=== PATIENT | male | born 1985 ===

== ENCOUNTER 2024-11-14 16:08 | Outpatient (AMB) | payer BC, SELFPAY ==
--- NOTE | 2024-11-14 16:09 | A.OFFPC_ITS ---
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 Required: No Accompanied by: Self / Same As Patient Allergies No Known Allergies Allergy (Verified 11/14/24 16:09) Medication List - Last Reconciled 11/14/24 by Andre Shelby MD blood pressure monitor As directed Tobacco use date assessed: 11/14/24 Dental Screening Dental Screen Date: 11/14/24 Did you have a dental visit in the last 12 months?: No Did you have a dental problem in the last 6 months where you did not have access to dental care?: No Was dental information given to patient?: No HPI HPI Comments History of Present Illness Details History of Present Illness The patient is a 39-year-old male presenting with musculoskeletal leg pain, right-sided, with possible nerve involvement. Sciatica: - Sharp, paralyzing pain in the right le g occurring during driving or prolonged walking, exacerbated by heavy lifting, with progressive worsening and radiation to the back. Essential Hypertension: - Elevated blood pressure recorded three months ago at urgent care without prior diagnosis or formal treatment. Dry skin (possible Eczema): - Excessively dry, flaky skin in the ear s and capps area, resistant to various topical treatments, with past history of chronic, severe ear infections treated with antibiotics. Health Maintenance - Recommended lifestyle modifications in cluding weight management and dietary counseling. - Initiated screening labs including com plete blood count, lipid panel, hemoglobin A1c, complete metabolic panel, thyroid function tests, and screening for vitamin D levels, and infectious diseases. - Discussed the benefits of cardiovascul ar risk reduction through weight management and dietary changes, and planned referrals to spray gun sizer. - Initiated a sleep study for assessment of possible sleep apnea due to snoring symptoms with potential implications for weight management. Review of Systems - Musculoskeletal: Reports nerve-like pa in in the right leg. - Cardiovascular: Reports of previously recorded elevated blood pressure. - Integumentary: Reports excessive dry s kin and flaking in the ears and capps area. - Respiratory: Denies respiratory distre ss. - Neurological: Denies seizure activity or loss of consciousness. - ENT: Denies sore throat or visual mariscal ges; reports history of chronic ear infections. 10-point ROS reviewed and negative excep t as noted in HPI Current Substance Use - Reports occasional marijuana use appro ximately twice a month. Substance Use History - Previous occasional smoking, not curre ntly smoking cigarettes. Past Medical History - Renal stones in [address] can. - Asthma in childhood with reduced sympt oms in adulthood. - History of chronic ear infections with treatment-resistant episodes requiring culture-based antibiotics. Family History - Heart disease: Sister from heart disease at age 13. Social History - with five daughters. 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 - Reports weight at 290 lbs, recognizing the need for weight loss with a previous baseline around 250-240 lbs. - Engages in limited physical activity d ue to time constraints but acknowledges the need for improvement. - Has not had a primary care provider fo r several years, with sporadic healthcare visits to urgent care facilities. Physical Exam General: No apparent distress. Alert and oriented x 3. Head:Normocephalic, atraumatic Eyes: Pupils equal, round, and reactive to light.Extraocular movements intact Throat: Oropharynx clear. Mucus membranes moist Neck: Supple. No left anterior descending artery distention. No jugular vein distention. No bruit. Cardiovascular: Regular rate and rhythm. Normal S1 and S2. Nomurmurs, rubs, or gallops Lungs: Clear to auscultation bilaterally. Breath sounds equal bilaterally. No rales, ronchi, or wheezes. Abdomen: Non-tender. Non-distended. Bowel sounds auscultated. Nochepatosplenomegaly. No mass/rebound/guarding Extremities: Pain on external and internal rotation of the right hip. Left hip normal on extension, flexion, and internal rotation. External rotation is normal, no pain. clubbing, cyanosis, and edema. 2+ pulses Neuro: Central nerves II-XII grossly intact. Motor/sensory intact. Reflexes 2. Gait normal Skin: Warm, dry, and intact. No rash. Dry, flaky skin noted inside ears and on b eard area. Discussion Notes I discussed with the patient that he might be experiencing a condition called sciatica, which can be managed with targeted exercises and lifestyle changes. We discussed weight loss as a significant factor in reducing symptoms, and I recommended consulting with a spray gun sizer for dietary guidance. For the elevated blood pressure, I advised keeping a blood pressure log and sending the patient an at-home blood pressure kit to better assess the condition. We are conducting a comprehensive panel of screening labs to evaluate various health parameters, and I have recommended an at-home sleep study to assess possible sleep apnea which could affect weight loss efforts. I also educated the patient about the potential impact of obesity and family history of heart disease on his health. An anticipatory plan was developed for addressing the dry skin condition, including the use of mineral oil for moisture. Future follow-up will be determined based on lab results and response to initial interventions. Plan 1. Sciatica, unspecified side M54. 30 - Recommended targeted exercises and dot ght management for relief. 2. Essential Hypertension - Monitor blood pressure with home readi ngs to guide further management. 3. Dry Skin Possible Eczema - Suggest use of mineral oil for symptom atic relief. Anticapatory Guidance - Instructions for blood pressure monito ring and lifestyle adjustments. - Strategies for weight loss and dietary changes. - Education about potential implications of snoring and weight on overall health. Patient Instructions - Please monitor your blood pressure at home as instructed. - Start doing specific exercises to help with your leg pain. - Try using a little mineral oil on your ears and capps area to help with the dry skin. - Follow the recommended diet and exerci se plan to help with weight loss. - Look out for the sleep study at home t o check if there are issues like sleep apnea. - Schedule a follow-up appointment to re view your blood pressure and any lab results. [facility] Medical History (Updated 11/13/24 @ 21:43 by NUNU Nava) No family history of bleeding disorder Asthma Surgical History (Updated 11/13/24 @ 21:45 by NUNU Naav) No pertinent past surgical history Family History (Updated 11/14/24 @ 16:19 by Aime Farias MA) Father No problems noted. Mother Asthma Social History Housing: House Alcohol intake: current Alcohol intake frequency: holidays/special occasions only Patient Tobacco Use Status: Never used Tobacco service: No Current occupational status: employed Cognitive needs: No Hearing needs: No Vision needs: Yes (contacts) Questionnaire PHQ-9 Over the last 2 weeks, how often have you been bothered by any of the following problems? 1. Little interest or pleasure in doing things: not at all 2. Feeling down, depressed, or hopeless: several days 3. Trouble falling or staying asleep, or sleeping too much: several days 4. Feeling tired or having little energy: several days 5. Poor appetite or overeating: several days 6. Feeling bad about yourself - or that you are a failure or have let yourself or your family down: several days 7. Trouble concentrating on things, such as reading the newspaper or watching television: several days 8. Moving or speaking so slowly that other people could have noticed. Or the opposite - being so fidgety or restless that you have been moving around a lot more than usual: not at all 9. Thoughts that you would be better off or of hurting yourself in some way: not at all Total score: 6 Depression Screening Interpretation: Positive Depression Screening Done: Yes 57599 - PHQ-9 Billing: Yes Source: Developed by Drs. Jorge Galindo, Maria Alejandra Reddy, Waldo Britt and colleagues, with an educational agatha from [employer]. Thrive Questionnaire Date Thrive assessed: 11/14/24 I am a: Patient What is your living situation today?: I have a steady place to live Within the past 12 months, did the food you bought not last and you didn't have the money to get more?: Often true Within the past 12 months, did you worry whether your food would run out before you got money to buy more?: Never true Do you have trouble paying for medicines?: I choose not to answer this question Do you have trouble getting transportation to medical appointments?: No Do you have trouble paying your heating and electricity bill?: No Do you have trouble taking care of your child, family member or friend?: No Do you have trouble with day-to-day activities such as bathing, preparing meals, shopping, managing finances, etc.?: No Are you currently unemployed and looking for a job?: No Are you interested in more education?: No Please select the resources that you would like help with: None Currently or been in a relationship where the following occur: No concerns reported THRIVE Score: 1 AUDIT C Alcohol Use Questionnaire (AUDIT-C) 1. How often do you have a drink containing alcohol?: Monthly or less 2. How many drinks containing alcohol do you have on a typical day when you are drinking?: 3 or 4 3. How often do you have six or more drinks on one occasion?: Less than monthly Total Score: 3 ANIA-7 AMB Questionnaire ANIA-7 Date ANIA - 7 assessed: 11/14/24 Feeling nervous, anxious, or on edge: 1 = Several days Not being able to stop or control worryin = Several days Worrying too much about different things: 1 = Several days Trouble relaxin = Several days Being so restless that it is hard to sit still: 0 = Not at all Becoming easily annoyed or irritable: 1 = Several days Feeling afraid as if something awful might happen: 0 = Not at all Total ANIA-7 score (0-4 normal; 5-9 mild; 10-14 moderate; 15-21 severe): 5 Source: Developed by Drs. Jorge Galindo, Maria Alejandra Reddy, Waldo Britt and colleagues, with an educational agatha from [employer]. ANIA-7 Assessment Billing ANIA-7 Assessment Tool: ANIA-7 Assessment 76288 Physical exam (Primary Care) PHQ-9: PHQ-9 Score PHQ-9: Total score 6 11/14/24 16:11 Depression Screening Interpretation: Positive Thrive Assessment: Date of Thrive Assessment Date Thrive assessed 11/14/24 11/14/24 16:11 Currently or been in a relationship where the following occur: No concerns reported Coding Level of Care Code New Pt Level 3 (36697) Diagnoses Encounter to establish care with new provider Z76.89 Routine lab draw Z01.89 Encounter for screening, unspecified Z13.9 Hypertension screen Z13.6 Screening for depression Z13.31 Screening for diabetes mellitus Z13.1 Screening for lipoid disorders Z13.220 Routine screening for STI (sexually transmitted infection) Z11.3 Asthma J45.909 Adjustment disorder F43.20 Morbidly obese E66.01 Elevated blood pressure reading R03.0 Additional Codes PHQ-9 - 79271 - PHQ-9 Billing: Yes ([id number]) ANIA-7 Assessment Billing - ANIA-7 Assessment Tool: ANIA-7 Assessment 30754 ([id number]) Assessment & Plan Assessment & Plan (1) Encounter to establish care with new provider: Code(s): Z76.89 - Persons encountering health services in other specified circumstances (2) Routine lab draw: Code(s): Z01.89 - Encounter for other specified special examinations (3) Encounter for screening, unspecified: Code(s): Z13.9 - Encounter for screening, unspecified (4) Hypertension screen: Code(s): Z13.6 - Encounter for screening for cardiovascular disorders (5) Screening for depression: Code(s): Z13.31 - Encounter for screening for depression (6) Screening for diabetes mellitus: Code(s): Z13.1 - Encounter for screening for diabetes mellitus (7) Screening for lipoid disorders: Code(s): Z13.220 - Encounter for screening for lipoid disorders (8) Routine screening for STI (sexually transmitted infection): Code(s): Z11.3 - Encounter for screening for infections with a predominantly sexual mode of transmission (9) Asthma: Code(s): J45.909 - Unspecified asthma, uncomplicated (10) Adjustment disorder: Code(s): F43.20 - Adjustment disorder, unspecified (11) Morbidly obese: Code(s): E66.01 - Morbid (severe) obesity due to excess calories (12) Elevated blood pressure reading: Code(s): R03.0 - Elevated blood-pressure reading, without diagnosis of hypertension Plan Orders: Orders CT NG by PCR Urine Today Z13.9 - Encounter for screening, unspecified, Z76.89 - Persons encountering health services in other specified circumstances Hepatitis B Surface Antibody Today Z13.9 - Encounter for screening, unspecified, Z76.89 - Persons encountering health services in other specified circumstances Hepatitis B Surface Antigen Today Z13.9 - Encounter for screening, unspecified, Z76.89 - Persons encountering health services in other specified circumstances Hepatitis C Antibody Today Z13.9 - Encounter for screening, unspecified, Z76.89 - Persons encountering health services in other specified circumstances Lipid Panel Today Z13.9 - Encounter for screening, unspecified, Z76.89 - Persons encountering health services in other specified circumstances TSH reflex Free T4 Today Z13.9 - Encounter for screening, unspecified, Z76.89 - Persons encountering health services in other specified circumstances Syphilis Screen Today Z13.9 - Encounter for screening, unspecified, Z76.89 - Persons encountering health services in other specified circumstances RT home sleep study Today E66.01 - Morbid (severe) obesity due to excess calories, R03.0 - Elevated blood-pressure reading, without diagnosis of hypertension Complete Blood Count Auto Diff Today Z13.9 - Encounter for screening, unspecified, Z76.89 - Persons encountering health services in other specified circumstances Comprehensive Met. Panel Today Z13.9 - Encounter for screening, unspecified, Z76.89 - Persons encountering health services in other specified circumstances Chlamydia Species Ab Panel Today Z13.9 - Encounter for screening, unspecified, Z76.89 - Persons encountering health services in other specified circumstances Hemoglobin A1c Today Z13.9 - Encounter for screening, unspecified, Z76.89 - Persons encountering health services in other specified circumstances HIV Ab/Ag Today Z13.9 - Encounter for screening, unspecified, Z76.89 - Persons encountering health services in other specified circumstances Microalbumin, Random (w Creat) Today Z13.9 - Encounter for screening, unspecified, Z76.89 - Persons encountering health services in other specified circumstances UA CC w/rflx Micro + Cult Today Z13.9 - Encounter for screening, unspecified, Z76.89 - Persons encountering health services in other specified circumstances Vitamin D 1,25 dihydroxy Today Z13.9 - Encounter for screening, unspecified, Z76.89 - Persons encountering health services in other specified circumstances Referrals Nutrition/Dietitian Referral E66.01 - Morbid (severe) obesity due to excess calories Medications: New blood pressure monitor As directed 1 ea 0RF blood pressure monitoring
[2024-11-14 16:19] VITALS: BP 140/94; PULSE 87; RESP 16; TEMP 36.7; O2SAT 96; BMI 44.6
== END 2024-11-14 16:51 | disposition home or self-care (01) ==
LOC: HO.HMCFMS 16:08
PROVIDERS: PCP Student in an Organized Health Care Education/Training Program; Visit Provider Student in an Organized Health Care Education/Training Program
DX: J45.909 Unspecified asthma, uncomplicated (principal); E66.01 Morbid (severe) obesity due to excess calories; R03.0 Elevated blood-pressure reading, without diagnosis of hypertension; Z68.41 Body mass index [BMI] 40.0-44.9, adult; F43.20 Adjustment disorder, unspecified

== ENCOUNTER → 2024-11-14 16:08 | Outpatient (BNVA) | payer BC, SELFPAY | PROVIDERS: PCP Student in an Organized Health Care Education/Training Program; Visit Provider Student in an Organized Health Care Education/Training Program | DX: Z76.89 Persons encountering health services in other specified circumstances (principal); M79.604 Pain in right leg; L85.3 Xerosis cutis; E66.01 Morbid (severe) obesity due to excess calories; Z68.41 Body mass index [BMI] 40.0-44.9, adult; R03.0 Elevated blood-pressure reading, without diagnosis of hypertension; J45.909 Unspecified asthma, uncomplicated; F43.20 Adjustment disorder, unspecified; Z13.31 Encounter for screening for depression; Z13.39 Encounter for screening examination for other mental health and behavioral disorders | CPT/HCPCS: 96127 ==

== ENCOUNTER 2024-11-18 14:48 | Outpatient (REF) | payer BC, SELFPAY ==
[2024-11-18 17:36] LABS: Appearance Urine Turbid; Glucose Urine UA Negative (Negative); PH 5.5 (5.0-9.0); Specific Gravity - Urine 1.025 (1.005-1.025)
[2024-11-18 17:39] LABS: MANUAL DIFF FLAG NO
[2024-11-18 17:45] LABS: Hematocrit 40.9 % (42.0-52.0); Hemoglobin 13.9 g/dl (14.0-18.0); Imm Gran Abs Auto 0.05 X10*3/uL (0.00-0.03); Imm Gran Pct Auto 0.7 % (0.0-0.4); Lymphocytes Absolute Auto 1.7 X10*3/uL (1.2-4.9); Mean Corpuscular HGB Conc 34.0 g/dl (31.0-36.0); Mean Corpuscular Hemoglobin 29.3 pg (27.0-33.0); Mean Corpuscular Volume 86.3 fL (80.0-98.0); NRBC Abs Auto 0.000 X10*3/uL (0.0-0.012); NRBC Pct Auto 0.0 /100WBC (0.0-0.2); Platelet Count 244 X10*3/uL (160-400); Red Blood Count 4.74 X10*6/uL (4.60-5.80); White Blood Count 7.3 X10*3/uL (4.8-10.8)
[2024-11-18 17:54] LABS: Microalbum/Creatinine Ratio Ur 5.8 ug/mg cr (<30)
[2024-11-18 17:56] LABS: Hemoglobin A1C 136.8413 umol/L; Total Hemoglobin (HGBA1C) 3575.5906 umol/L
[2024-11-18 18:11] LABS: Alanine Aminotransferase 62 U/L (0-40); Albumin Level 4.8 g/dL (3.5-5.0); Alkaline Phosphatase 61 U/L (39-117); Anion Gap 12 (12-20); Aspartate Amino Transferase 42 U/L (5-37); Blood Urea Nitrogen 15 mg/dL (9-16); Calcium 9.3 mg/dL (8.4-10.2); Carbon Dioxide 28 mmol/L (22-29); Chloride 106 mmol/L (96-108); Cholesterol 188 mg/dL (<200); Estimated Glomerular Filt Rate > 60; HDL Cholesterol 28 mg/dL (>40); Potassium 4.0 mmol/L (3.3-5.1); Sodium 142 mmol/L (135-145); Total Protein 7.5 g/dL (6.5-8.0); Triglycerides 345 mg/dL (<150)
[2024-11-20 04:53] LABS: Syphilis Screen Nonreactive (Nonreactive)
[2024-11-20 05:26] LABS: HBS Num1 192.03 mIU/mL (0-7.99); HBsAGNum1 0.43 S/CO (0.00-0.99); HIV Num 1 0.05 S/CO (0.00-0.99); Hepatitis B Surface Antigen Negative (Negative); ~HepC Num1 0.11 S/CO (0.00-0.79); ~Hepatitis B Surface Antibody REACTIVE (Nonreactive); ~Hepatitis C Antibody Nonreactive (Nonreactive)
[2024-11-24 20:18] LABS: Chlamydia Trachomatis IgA <1:16 titer (<1:16)
[2024-11-24 20:39] LABS: VITAMIN D (1,25 OH) D3 68 pg/mL; Vit D (1,25-Dihydroxy) Total 68 pg/mL (18-72); Vitamin D (1,25 OH) D2 <8 pg/mL
== END 2024-11-18 14:49 | disposition home or self-care (01) ==
LOC: HO.HKASLDS 14:48
PROVIDERS: Visit Provider Student in an Organized Health Care Education/Training Program
DX: Z13.1 Encounter for screening for diabetes mellitus (principal); Z13.21 Encounter for screening for nutritional disorder; Z13.6 Encounter for screening for cardiovascular disorders; Z76.89 Persons encountering health services in other specified circumstances; Z13.29 Encounter for screening for other suspected endocrine disorder
CPT/HCPCS: 36415; 80053; 80061; 81003; 82043; 82570; 82652; 83036; 84443; 85025; 86631; 86632; 86706; 86780; 86803; 87340; 87389

== ENCOUNTER 2025-01-15 13:37 | Outpatient (AMB) | payer BC, SELFPAY ==
--- NOTE | 2025-01-15 14:05 | A.OFFVIS_ITS ---
VS Expanded 01/15/25 14:06 Height 5 ft 6.75 in Weight 268 lb BMI 42.3 Intake Visit Reasons: Morbid (severe) obesity due to excess calories Allergies No Known Allergies Allergy (Verified 11/14/24 16:09) Nutrition Presentation Details: Pt presents for MNT for obesity Pt reports increasing water intake and reducing sugars Food frequency Fruits 0-1 a day Vegetables 4 times a week Dairy 4 times or more per day Fish 0-2 month Beverages, water, low sugar beverages and working on reducing on sodas Physical activity daily life activities BS Monitoring Most Recent Diabetes Results: Microalb/Creat Ratio, (<30) 5.8 ug/mg cr 11/18/24 Cholesterol, (<200) 188 mg/dL 11/18/24 HDL Cholesterol, (>40) 28 mg/dL L 11/18/24 Triglycerides, (<150) 345 mg/dL H 11/18/24 Creatinine, (0.5-1.4) 0.97 mg/dL 11/18/24 BUN, (9-16) 15 mg/dL 11/18/24 Sodium, (135-145) 142 mmol/L 11/18/24 Potassium, (3.3-5.1) 4.0 mmol/L 11/18/24 Chloride, (96-108) 106 mmol/L 11/18/24 Carbon Dioxide, (22-29) 28 mmol/L 11/18/24 Calcium, (8.4-10.2) 9.3 mg/dL 11/18/24 AST, (5-37) 42 U/L H 11/18/24 ALT, (0-40) 62 U/L H 11/18/24 Total Protein, (6.5-8.0) 7.5 g/dL 11/18/24 Albumin, (3.5-5.0) 4.8 g/dL 11/18/24 FIP-Uhjlbgo-Kt.Jeor Equation Height: 5 ft 6.75 in Weight: 268 lb Resting Metabolic Rate: 2092.14 Calculated Activity Level: Sedentary Calories Needed to Maintain Weight: 2510.57 Diagnosis Nutrition problem #1: excessive energy intake As related to (etiology) #1: lack of nutrit education As evidenced by (sign/symptom) #1: high BMI [facility] Medical History (Updated 01/26/25 @ 09:[address], LDN) No family history of bleeding disorder Asthma Surgical History (Updated 11/13/24 @ 21:45 by NUNU Nava) No pertinent past surgical history Family History (Updated 11/14/24 @ 16:19 by Aime Farias MA) Father No problems noted. Mother Asthma Social History (Updated 11/14/24 @ 16:19 by Aime Farias MA) Housing: House Alcohol intake: current Alcohol intake frequency: holidays/special occasions only Patient Tobacco Use Status: Never used Tobacco service: No Current occupational status: employed Cognitive needs: No Hearing needs: No Vision needs: Yes (contacts) Assessment & Plan Assessment & Plan (1) Morbid obesity with BMI of 40.0-44.9, adult: Code(s): E66.01 - Morbid (severe) obesity due to excess calories; Z68.41 - Body mass index [BMI] 40.0-44.9, adult Category: Medical Plan: current wt: kg ( ) est kcal needs as per MSJ: est protein needs as per 1 g/kg BW: est fluid needs as per 30 ml/kg BW: Recommended fiber > 12 g /day and gradually increase up to 25-28 g /day or as tolerated Nutrition topics discussed : Reviewed (R), Pt verbalized understanding (V) , not applicable (N/A) R, : Healthy Plate Method Concept: R, : Carbohydrates: food sources of carbohydrates, relationship of carbohydrates to blood glucose, fatty liver GI health. Recommended total amount of carbohydrates per meals and snack. Differences between simple carbohydrates and complex carbohydrates R, : Lean protein foods including vegan , vegetarian sources of protein. Benefits of protein (including but not limited to healing, nutritional value , benefits in weight loss, glucose control R, V, N/A: Fats : Source of fats, benefits of fats. Difference between sat urated and unsaturated fats. Saturated fats and its contribution to inflammation R, V, N/A: Fiber: food sources and role of fiber in the diet (including but not limited to its role as a prebiotic, benefits in constipation, role in IBS , role in glucose control and cholesterol level) R, V, N/A: Hydration: role of hydration and prevention of dehydration or over hydration. Foods and water content. R, V, N/A: Vitamins and Minerals in foods and supplements R, V, N/A: Interpreting food labels, including serving size, macronutrients, vitamins, minerals, allergens, ingredient list , % daily value Patient Instructions: Choose whole grain foods in foods with fiber. Continue working on reducing sugar intake Follow healthy plate method at dinnertime See 2500 calorie meal plan as a reference, working on choosing low sugar and lower fat food options and increasing on fiber Coding Level of Care Code Nutr Indiv Intake (14439) Diagnoses Morbid obesity with BMI of 40.0-44.9, adult E66.01; Z68.41 Time Spent (min) 30
[2025-01-15 14:06] VITALS: BMI 42.3
[2025-01-26 09:11] VITALS: BMI 42.3
== END 2025-01-15 14:44 | disposition home or self-care (01) ==
LOC: HO.ENCR 13:38
PROVIDERS: PCP Student in an Organized Health Care Education/Training Program; Visit Provider Dietitian, Registered
DX: E66.01 Morbid (severe) obesity due to excess calories (principal); Z68.41 Body mass index [BMI] 40.0-44.9, adult

== ENCOUNTER → 2025-01-15 13:37 | Outpatient (BNVA) | payer BC, SELFPAY | PROVIDERS: PCP Student in an Organized Health Care Education/Training Program; Visit Provider Dietitian, Registered | DX: E66.01 Morbid (severe) obesity due to excess calories (principal); Z68.41 Body mass index [BMI] 40.0-44.9, adult | CPT/HCPCS: 97802 ==

== ENCOUNTER 2025-03-03 16:35 | Outpatient (AMB) | payer BC, SELFPAY ==
--- NOTE | 2025-03-03 16:36 | A.OFFPC_ITS ---
Vital Signs 03/03/25 16:39 Height 5 ft 6.75 in Weight 266 lb 4 oz BMI 42.0 BP 128/72 Blood Pressure Location Lt brachial Position Sitting Respiration 17 Pulse 87 Pulse Source Pulse Oximeter Temp 98 F Temp Source Oral Pulse Oximetry (%) 97 Oxygen Delivery Method Room Air Intake Visit Reasons: EP - Follow Up Intake Note: Patient present for follow up. 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 Prediabetes: The patient's hemoglobin A1c is 5.7%, which falls within the prediabetic range. He has previously seen a registered dietitian and has since modified his diet by reducing sugar intake. Hyperlipidemia: The patient's triglycerides are significantly elevated at 345 mg/dL, and his HDL cholesterol is low at 28 mg/dL. His LDL cholesterol is 91 mg/dL. Hypertension: The patient's blood pressure in the office today was 128/72 mmHg. He kept an inconsistent blood pressure log from November to January, which showed elevated readings, including 161/104 mmHg, 144/86 mmHg, and 151/92 mmHg, typically taken before bed. Elevated liver transaminases: Recent lab results show elevated liver enzymes, with an AST of 42 U/L and an ALT of 62 U/L. Headache: The patient reports experiencing occasional headaches, which he likens to migraines, accompanied by a pulsating sensation. He has not taken any medication for these headaches. Anemia: Recent laboratory findings indicated that the patient's hemoglobin and hematocrit levels are low, suggesting possible iron deficiency anemia. Medications: - The patient reports he is not taking a ny medications. Social History: - He is and has five daughters. - He reports recent positive lifestyle c hanges, including reducing sugar intake, increasing water consumption, and starting to go to the gym. - He has achieved approximately 23 pound s of weight loss since November, going from 289 lbs to 266 lbs. - He acknowledges stress related to fami ly life. Diagnostic Results: - Labs: Recent labs showed low hemoglobi n and hematocrit, a hemoglobin A1c of 5.7%, AST of 42 U/L, ALT of 62 U/L, triglycerides of 345 mg/dL, and HDL of 28 mg/dL. - Other labs including sodium, potassium , renal function, vitamin D, and thyroid function were normal. - Infectious Disease Screening: Negative for chlamydia, hepatitis B, hepatitis C, and HIV. Past Medical History Health Maintenance - The patient has seen a registered diet itian. - He has implemented dietary changes, in cluding cutting out sugar. - He has started going to the gym for ex ercise. - He has achieved significant weight los s of about 23 pounds. - A sleep study was recommended, but he declined. - He has been screened for chlamydia, he patitis B, hepatitis C, and HIV, with negative results. [facility] Medical History No family history of bleeding disorder Asthma Surgical History No pertinent past surgical history Family History Father No problems noted. Mother Asthma Social History (Updated 03/03/25 @ 16:38 by Russell Gillette CMA) Housing: House Alcohol intake: current Alcohol intake frequency: holidays/special occasions only Patient Tobacco Use Status: Never used Tobacco e-Cigarette/Vaping Use: Never Used service: No Current occupational status: employed Cognitive needs: No Hearing needs: No Vision needs: Yes (contacts) Questionnaire Thrive Questionnaire Date Thrive assessed: 11/14/24 I am a: Patient What is your living situation today?: I have a steady place to live Within the past 12 months, did the food you bought not last and you didn't have the money to get more?: Often true Within the past 12 months, did you worry whether your food would run out before you got money to buy more?: Never true Do you have trouble paying for medicines?: I choose not to answer this question Do you have trouble getting transportation to medical appointments?: No Do you have trouble paying your heating and electricity bill?: No Do you have trouble taking care of your child, family member or friend?: No Do you have trouble with day-to-day activities such as bathing, preparing meals, shopping, managing finances, etc.?: No Are you currently unemployed and looking for a job?: No Are you interested in more education?: No Currently or been in a relationship where the following occur: No concerns reported THRIVE Score: 1 ANIA-7 AMB Questionnaire ANIA-7 Date ANIA - 7 assessed: 11/14/24 Source: Developed by Drs. Jorge Galindo, Maria Alejandra Reddy, Waldo Britt and colleagues, with an educational agatha from [employer]. Review of Systems Narrative Review of Systems - Neurological: Reports occasional headaches, described as being like migraines. - Constitutional: Denies problems with sleep. 10-point ROS reviewed and negative except as noted in HPI Physical exam (Primary Care) Vital Signs: Last Vital Signs Temp 98 F 03/03/25 16:39 Pulse 87 03/03/25 16:39 Resp 17 03/03/25 16:39 BP 128/72 03/03/25 16:39 Pulse Ox 97 03/03/25 16:39 Oxygen Delivery Method Room Air 03/03/25 16:39 BMI result Body Mass Index 42.0 Tobacco/Smoking Status: Tobacco use Status Tobacco use date assessed 11/14/24 03/03/25 16:42 Patient Tobacco Use Status Never used Tobacco 03/03/25 16:42 e-Cigarette/Vaping Use Never Used 03/03/25 16:42 Thrive Assessment: Date of Thrive Assessment Date Thrive assessed 11/14/24 03/03/25 16:42 Currently or been in a relationship where the following occur: No concerns reported Narrative Physical Exam General: Well-appearing, in no acute distress. Vital signs: Blood pressure today was 128/72. HEENT: Normocephalic, atraumatic. PERRLA, EOMI. Conjunctiva clear, sclera anicteric. Oropharynx clear, mucous membranes moist. TMs intact bilaterally. Neck: Supple, no lymphadenopathy, no thyromegaly, no JVD or carotid bruits. Cardiovascular: RRR, normal S1/S2, no murmurs, rubs, or gallops. Peripheral pulses 2+ and symmetric. No edema. Respiratory: Lungs clear to auscultation bilaterally, no wheezes, rales, or rhonchi. Normal effort. Abdomen: Soft, non-tender, non-distended. Normoactive bowel sounds. No hepatosplenomegaly, no masses. MSK: Full range of motion, no joint swelling or deformity. Normal gait. Skin: Warm, dry, intact. No rashes, lesions, or pallor. Neuro: Alert and oriented x3. Cranial nerves II-XII intact. Strength 5/5 throughout. Sensation intact. Reflexes 2+ symmetric. Normal coordination and gait. Psych: Appropriate mood and affect. Normal judgment and insight. Coding Level of Care Code Est Pt Level 3 (64675) Add On Problem Visit Only Diagnoses Prediabetes R73.03 Hyperlipidemia E78.5 Hypertension I10 Elevated liver enzymes R74.8 Morbid obesity with BMI of 40.0-44.9, adult E66.01; Z68.41 Headache R51.9 Iron deficiency anemia D50.9 Assessment & Plan Assessment & Plan (1) Prediabetes: Code(s): R73.03 - Prediabetes Category: Medical (2) Hyperlipidemia: Code(s): E78.5 - Hyperlipidemia, unspecified Category: Medical (3) Hypertension: Code(s): I10 - Essential (primary) hypertension Category: Medical (4) Elevated liver enzymes: Code(s): R74.8 - Abnormal levels of other serum enzymes Category: Medical (5) Morbid obesity with BMI of 40.0-44.9, adult: Code(s): E66.01 - Morbid (severe) obesity due to excess calories; Z68.41 - Body mass index [BMI] 40.0-44.9, adult Category: Medical (6) Headache: Code(s): R51.9 - Headache, unspecified Category: Medical (7) Iron deficiency anemia: Code(s): D50.9 - Iron deficiency anemia, unspecified Category: Medical Plan Consent Patient was informed and verbally consented to the use of an ambient scribe for clinic note documentation during this visit. Plan 1. Prediabetes - Continue with lifestyle changes, including diet and exercise, which have already resulted in weight loss. - Repeat labs, including hemoglobin A1c, in three months to monitor progress. 2. Mixed Hyperlipidemia - The patient will continue with lifestyle modifications, which are expected to improve the lipid profile. - A lipid panel will be rechecked in three months. will start omega fish oil 3. Hypertension - Continue to self-monitor blood pressure at home using a wrist cuff and maintain a consistent log. - Lifestyle changes, including ongoing weight loss, are expected to help control blood pressure. - No antihypertensive medication is being prescribed at this time, pending review of the home blood pressure log. 4. Elevated Liver Transaminases - An ultrasound of the liver will be ordered to establish a baseline and evaluate for suspected fatty liver disease. - Repeat liver function tests as part of the lab work in three months. 5. Headache - Ibuprofen 600 mg has been prescribed for use as needed for headaches. - He can repeat the dose in six to eight hours if the headache persists. - If ibuprofen does not provide relief, the treatment plan will be re-evaluated. 6. Anemia - The low hemoglobin and hematocrit will be re-evaluated with repeat labs in three months. Discussion Notes I reviewed the patient's lab results with him, highlighting the low hemoglobin and hematocrit, a hemoglobin A1c of 5.7% indicating prediabetes, elevated liver enzymes (AST 42, ALT 62), significantly elevated triglycerides at 345, and low HDL at 28. I explained that the metabolic abnormalities, particularly the elevated liver enzymes, are likely due to fatty liver, and I conveyed that this is a major cause of liver transplants today. I strongly commended him on his significant weight loss of over 20 pounds and his positive lifestyle changes, including diet modification and starting exercise, noting that these efforts will lead to improvements in his lab values. I recommended an ultrasound of his liver to establish a baseline. We discussed his new complaint of headaches, and I prescribed ibuprofen 600 mg for him to try. I explained that blood pressure can fluctuate due to various stressors and that continued home monitoring is important to establish a true trend. We discussed the potential link between sleep issues and his metabolic syndrome and the value of a sleep study, which he had previously declined. I advised him to follow up in three months for repeat lab work to assess the fruit of his labor. Patient Instructions - Continue with your successful lifestyle changes, including your diet and gym routine. - Proceed with getting the ultrasound of your liver that was ordered. - For headaches, take one tablet of ibuprofen 600 mg as needed. - If the headache does not go away, you may take another tablet in 6 to 8 hours. - Keep checking your blood pressure at home consistently and write down the readings in a log. - Schedule a follow-up appointment in three months to repeat your lab tests and review your progress. - Please reconsider getting a sleep study, as it can help determine if a sleep problem is contributing to your health issues. Medical Decision Making The patient is a 39-year-old male with multiple features of metabolic syndrome, including prediabetes (HbA1c 5.7%), severe hypertriglyceridemia (345), low HDL (28), and elevated liver transaminases (AST 42, ALT 62). His history also suggests hypertension based on elevated home BP readings, though his in-office measurement was normal today. Given his significant, self-motivated success with lifestyle modification???evidenced by a 23-pound weight loss and improved dietary and exercise habits???the current management strategy is focused on supporting these efforts rather than initiating pharmacotherapy. The elevated liver enzymes are highly suggestive of non-alcoholic fatty liver disease (NAFLD) in this clinical context; therefore, a baseline liver ultrasound is indicated to assess for steatosis. For his new complaint of headaches, a trial of a prescription-strength NSAID (ibuprofen 600mg) is a reasonable first- line approach. Continued home BP monitoring is crucial to differentiate between white coat effect and sustained hypertension, which will guide future decisions about medication. The plan is to re-evaluate his metabolic panel in three months to quantify the impact of his ongoing lifestyle changes. Total Time Statement 20 min Total time spent caring for the patient today includes pre-visit chart review, documentation, review of laboratory and diagnostic imaging results, medication reconciliation, medically necessary evaluation, counseling on diagnoses, care coordination, ordering appropriate tests and medications, review of tests performed by other providers, reporting test results to the patient, and communication with other healthcare providers. Orders: Orders US abdomen limited 03/03/25 R74.8 - Abnormal levels of other serum enzymes Medications: New icosapent ethyl 2 grams (2 x 1 gram) PO BID 360 caps 0RF ibuprofen 600 mg PO Q8H PRN 30 tabs 0RF pain
[2025-03-03 16:39] VITALS: BP 128/72; PULSE 87; RESP 17; TEMP 36.6; O2SAT 97; BMI 42.0
== END 2025-03-03 16:59 | disposition home or self-care (01) ==
LOC: HO.HMCFMS 16:35
PROVIDERS: PCP Student in an Organized Health Care Education/Training Program; Visit Provider Student in an Organized Health Care Education/Training Program
DX: R73.03 Prediabetes (principal); E78.5 Hyperlipidemia, unspecified; I10 Essential (primary) hypertension; R74.8 Abnormal levels of other serum enzymes; E66.01 Morbid (severe) obesity due to excess calories; Z68.41 Body mass index [BMI] 40.0-44.9, adult; R51.9 Headache, unspecified; D50.9 Iron deficiency anemia, unspecified